=== PATIENT | female | born 1970 | race American Indian/Alaskan Native ===

== ENCOUNTER 2017-06-16 21:32 | Emergency (ER) | payer SELFPAY ==
[~2017-06-16] VITALS: Ht 149.9 cm; Wt 60.5 kg
[2017-06-16 22:51] LABS: Urine Bacteria FEW /hpf (None Seen); Urine Blood 1+ /uL (Negative); Urine Hyaline Cast FEW /lpf (0 - 2); Urine Specific Gravity 1.014 (1.001-1.035); Urine WBC 15 /hpf (0 - 5)
[2017-06-16 23:40] LABS: Hemoglobin 7.6 g/dL (12.2-16.2); White Blood Cell 17.8 10^3/uL (4.4-10.8)
[2017-06-16 23:42] LABS: Hematocrit 24.3 % (36.0-46.0); Mean Corpuscular Hemoglobin 19.6 pg (28.0-32.0); Mean Corpuscular Hgb Conc. 31.1 g/dL (32.0-36.0); Mean Corpuscular Volume 63.1 fL (80.0-100.0); Platelet Count (auto) 288 10^3/uL (140-450); Red Blood Cells 3.85 10^6/uL (4.0-5.20); Red Cell Distribution Width 18.5 % (11.8-14.3)
[2017-06-16] MEDS ORDERED: MORPHINE SULFATE 4 MG/ML SYR/VIAL IV ONE (23:45)
[2017-06-16] MEDS ORDERED: ONDANSETRON HCL 4 MG/2 ML VIAL IV ONE (23:45)
[2017-06-16 23:51] LABS: Band Neutrophils % (manual) 0; Basophils % (manual) 0 (0.0-2.0); Blast Cells 0; Metamyelocytes % 0; Myelocytes % 0; Promyelocytes % 0; Reactive Lymphocytes 0
[2017-06-16 23:54] LABS: Albumin 2.1 g/dL (3.4-5.0); Potassium 4.8 mmol/L (3.5-5.1)
[2017-06-17] VITALS (8 sets, daily range): BP systolic 119–137; BP diastolic 51–80
[2017-06-17 00:02] LABS: Bilirubin, Total 0.1 mg/dL (0.2-1.0); Total Protein 6.5 g/dL (6.4-8.2)
[2017-06-17 00:33] LABS: INR 0.99 (0.9-1.15); Partial Thromboplastin Time 30.8 sec (22.64-33.71); Prothrombin Time 10.8 sec (9.37-12.3)
[2017-06-17] MEDS ORDERED: LIDOCAINE 2% (LOCAL ANESTH.) PF 5ml SDV ONE (00:37)
[2017-06-17 00:53] LABS: Eosinophils % (manual) 2 (0-7); Lymphocytes % (manual) 19 (10.0-50.0); Monocytes % (manual) 6 (0-12)
[2017-06-17] MEDS ORDERED: cefTRIAXone 1GM/10ml IVPUSH 10 ML IV ONE (02:30)
[2017-06-17] MEDS ORDERED: ONDANSETRON HCL 4 MG/2 ML VIAL IV ONE (03:15)
[2017-06-17] MEDS ORDERED: MORPHINE SULFATE 4 MG/ML SYR/VIAL IV ONE (03:15)
[2017-06-17] MEDS ORDERED: VITAMINS A & D (TOPICAL) OINT 5GM TOP ONE (04:31)
== END 2017-06-17 09:06 | disposition home or self-care (01) ==
LOC: ER 21:32
DX: K70.31 Alcoholic cirrhosis of liver with ascites (principal); K80.20 Calculus of gallbladder without cholecystitis without obstruction; D64.9 Anemia, unspecified; E87.1 Hypo-osmolality and hyponatremia; N39.0 Urinary tract infection, site not specified; D72.829 Elevated white blood cell count, unspecified; N28.9 Disorder of kidney and ureter, unspecified
CPT/HCPCS: 36415; 36430; 49083; 70450; 74176; 80053; 81001; 81025; 85007; 85027; 85610; 85730; 86850; 86900; 86901; 86920; 87205; 89051; 93005; 96374; 96375; 96376; 99285; J2270; J2405; J7030; P9016

== ENCOUNTER 2017-07-01 20:47 | Inpatient (IN) | payer SELFPAY ==
[~2017-07-01] VITALS: Ht 149.9 cm; Wt 57.7 kg
[2017-07-01 22:01] LABS: Monocytes # (auto) 1.4 uL
[2017-07-01 22:02] LABS: Basophils # (auto) 0.2 uL; Basophils % (auto) 1.4 % (0.0-2.0); Eosinophils # (auto) 0.3 uL; Hematocrit 31.3 % (36.0-46.0); Hemoglobin 9.8 g/dL (12.2-16.2); Lymphocytes # (auto) 2.4 uL; Lymphocytes % (auto) 13.8 % (10.0-50.0); Mean Corpuscular Hemoglobin 21.1 pg (28.0-32.0); Mean Corpuscular Hgb Conc. 31.4 g/dL (32.0-36.0); Monocytes % (auto) 7.9 % (0.0-12.0); Neutrophils % (auto) 74.9 % (37.0-80.0); Platelet Count (auto) 327 10^3/uL (140-450); Red Blood Cells 4.67 10^6/uL (4.0-5.20); White Blood Cell 17.3 10^3/uL (4.4-10.8)
[2017-07-01 22:06] LABS: Red Cell Distribution Width 24.2 % (11.8-14.3)
[2017-07-01 22:15] LABS: Partial Thromboplastin Time 31.7 sec (22.64-33.71); Prothrombin Time 10.9 sec (9.37-12.3)
[2017-07-01 22:17] LABS: Albumin 1.7 g/dL (3.4-5.0); BUN/Creatinine Ratio 24.6; Calcium 8.4 mg/dL (8.5-10.1); Magnesium 2.9 mg/dL (1.6-2.6)
[2017-07-01 22:20] LABS: Bilirubin, Total 0.2 mg/dL (0.2-1.0); Total Protein 6.9 g/dL (6.4-8.2)
[2017-07-02] MEDS ORDERED: DEXTROSE (50%) 50ML SYRG IV ONE (01:30)
[2017-07-02] MEDS ORDERED: SODIUM POLYSTYRENE SULF 15GM/60ML SUSP PO ONE (01:30)
[2017-07-02] MEDS ORDERED: InsuLIN REG 1unit/0.01ml Soln (100units/ml) IV ONE (01:30)
[2017-07-02] MEDS ORDERED: CALCIUM GLUC 4.65meq/50ml D5AE 50 ML IV ONE (01:30)
[2017-07-02] MEDS ORDERED: SODIUM BICARBONATE 8.4 % INJ 50ML VIAL IV ONE (01:30)
[2017-07-02] MEDS ORDERED: HYDROcodone-ACET 5/325MG TAB PO ONE (05:15)
[2017-07-02] MEDS ORDERED: NITROGLYCERIN 0.4 MG SL TAB SL PRN (09:45)
[2017-07-02] MEDS ORDERED: MORPHINE SULFATE 8mg/ml INJ SDV IV PRN (09:45)
[2017-07-02] MEDS ORDERED: TEMAZEPAM 15 MG CAP PO PRN (09:45)
[2017-07-02] MEDS ORDERED: cefTRIAXone 1GM/10ml IVPUSH 10 ML IV ONE (09:45)
[2017-07-02] MEDS: MORPHINE SULFATE 8mg/ml INJ SDV IV PRN ×4 (09:54→23:55)
[2017-07-02] MEDS: PANTOPRAZOLE 40 MG TAB PO SCH (10:15)
[2017-07-02 10:51] LABS: Calcium 8.4 mg/dL (8.5-10.1); Potassium 4.7 mmol/L (3.5-5.1)
[2017-07-02 10:58] LABS: Amylase 35 U/L (25-115); Lipase 150 U/L (73-393)
[2017-07-02 13:00] VITALS: BP 125/62
[2017-07-02] MEDS: metroNIDAZOLE 500MG/100ML 100 ML IV SCH ×2 (13:25→17:20)
[2017-07-02] MEDS ORDERED: DOCU100T15 PO (14:10)
[2017-07-02] MEDS ORDERED: FURO40TA PO (14:10)
[2017-07-02] MEDS ORDERED: FOLI1TAB6 PO (14:10)
[2017-07-02] MEDS ORDERED: MULTTAB99 GT (14:10)
[2017-07-02] MEDS ORDERED: HYDR200T PO (14:10)
[2017-07-02] MEDS ORDERED: SODIUM CHLORIDE 0.9% 1,000 ML IV ONE (14:30)
[2017-07-02 15:00] LABS: Urine Bacteria NONE SEEN /hpf (None Seen); Urine Blood 2+ /uL (Negative); Urine Hyaline Cast MOD /lpf (0 - 2); Urine Mucus FEW (None Seen); Urine Specific Gravity 1.022 (1.001-1.035); Urine WBC 7 /hpf (0 - 5)
[2017-07-02 15:28] LABS: Protein, Urine 139.9 mg/dL (0.0-11.9)
[2017-07-02 17:00] VITALS: BP 111/57
[2017-07-02 20:00] VITALS: BP 128/68
[2017-07-02 21:30] VITALS: BP 118/72
[2017-07-02] MEDS: NYSTATIN (MOUTH-THROAT) 500,000 UNITS/5 ML SUSP MT SCH (21:56)
[2017-07-02] MEDS: PROMETHAZINE HCL 25 MG/ML 1ML IV PRN (23:55)
[2017-07-03] MEDS: metroNIDAZOLE 500MG/100ML 100 ML IV SCH ×4 (00:45→17:32)
[2017-07-03] MEDS: MORPHINE SULFATE 8mg/ml INJ SDV IV PRN ×3 (04:32→22:32)
[2017-07-03] MEDS: PROMETHAZINE HCL 25 MG/ML 1ML IV PRN ×3 (04:32→22:32)
[2017-07-03 04:33] VITALS: BP 127/71
[2017-07-03] MEDS: NYSTATIN (MOUTH-THROAT) 500,000 UNITS/5 ML SUSP MT SCH ×4 (05:50→22:33)
[2017-07-03 06:50] LABS: Basophils # (auto) 0.2 uL; Eosinophils # (auto) 0.5 uL; Hemoglobin 8.4 g/dL (12.2-16.2)
[2017-07-03 06:53] LABS: Basophils % (auto) 1.1 % (0.0-2.0); Eosinophils % (auto) 2.8 % (0.0-7.0); Hematocrit 26.9 % (36.0-46.0); Lymphocytes # (auto) 2.6 uL; Lymphocytes % (auto) 15.5 % (10.0-50.0); Mean Corpuscular Hemoglobin 20.9 pg (28.0-32.0); Mean Corpuscular Hgb Conc. 31.2 g/dL (32.0-36.0); Monocytes # (auto) 1.5 uL; Monocytes % (auto) 9.3 % (0.0-12.0); Neutrophils # (auto) 11.8 uL; Neutrophils % (auto) 71.3 % (37.0-80.0); Platelet Count (auto) 301 10^3/uL (140-450); Red Blood Cells 4.02 10^6/uL (4.0-5.20); White Blood Cell 16.5 10^3/uL (4.4-10.8)
[2017-07-03 07:00] LABS: Albumin 1.5 g/dL (3.4-5.0); BUN/Creatinine Ratio 18.9; Calcium 8.3 mg/dL (8.5-10.1); Potassium 5.1 mmol/L (3.5-5.1)
[2017-07-03 07:01] LABS: Red Cell Distribution Width 23.6 % (11.8-14.3)
[2017-07-03 07:04] LABS: Bilirubin, Total 0.2 mg/dL (0.2-1.0); Total Protein 6.1 g/dL (6.4-8.2)
[2017-07-03 07:41] LABS: Phosphorus 7.2 mg/dL (2.5-4.90); Uric Acid 15.1 mg/dL (2.6-6.0)
[2017-07-03 08:44] VITALS: BP 122/66
[2017-07-03] MEDS ORDERED: LIDOCAINE 2% (LOCAL ANESTH.) PF 5ml SDV ONE (09:01)
[2017-07-03] MEDS: LORazepam 0.5 MG TAB PO PRN (09:03)
[2017-07-03 10:08] LABS: Hepatitis B Surface Antibody Positive
[2017-07-03] MEDS: PANTOPRAZOLE 40 MG TAB PO SCH (10:20)
[2017-07-03] MEDS: cefTRIAXone 1GM/10ml IVPUSH 10 ML IV SCH (10:20)
[2017-07-03 10:41] LABS: Hepatitis A Total Antibody Positive
[2017-07-03 11:03] LABS: Hepatitis B Core Total AB Negative; Hepatitis C Antibody Negative (Negative)
[2017-07-03] MEDS: ALBUMIN 25% 100 ML IV SCH ×2 (14:09→15:30)
[2017-07-03 14:32] LABS: Hepatitis B Surface Antigen Negative (Negative)
[2017-07-03 16:48] VITALS: BP 110/63
[2017-07-03 22:00] VITALS: BP 118/66
[2017-07-03 23:17] LABS: Alcohol, Urine < 3.0 mg/dL (0-5); Amphetamine Screen, Urine NEGATIVE (NEGATIVE); Barbiturate Scree,Urine NEGATIVE (NEGATIVE); Benzodiazephine Screen, Urine NEGATIVE (NEGATIVE); Cannabinoid Screen, Urine NEGATIVE (NEGATIVE); Cocaine Screen, Urine NEGATIVE (NEGATIVE); Creatinine, Urine 82 mg/dL (30.0-125.0); Opiate Scree,Urine POSITIVE (NEGATIVE); Phencyclidine Screen, Urine NEGATIVE (NEGATIVE); Sodium Urine 18 mmol/L (40-220)
[2017-07-04] MEDS: metroNIDAZOLE 500MG/100ML 100 ML IV SCH ×2 (00:21→05:41)
[2017-07-04] MEDS: MORPHINE SULFATE 8mg/ml INJ SDV IV PRN ×4 (02:57→23:04)
[2017-07-04 04:43] VITALS: BP 123/62
[2017-07-04] MEDS: NYSTATIN (MOUTH-THROAT) 500,000 UNITS/5 ML SUSP MT SCH ×3 (05:42→21:37)
[2017-07-04 06:51] LABS: Basophils # (auto) 0.2 uL; Hematocrit 25.8 % (36.0-46.0); Lymphocytes # (auto) 1.8 uL; Neutrophils # (auto) 10.2 uL; Neutrophils % (auto) 72.3 % (37.0-80.0); White Blood Cell 14.1 10^3/uL (4.4-10.8)
[2017-07-04 06:57] LABS: Basophils % (auto) 1.3 % (0.0-2.0); Eosinophils # (auto) 0.6 uL; Eosinophils % (auto) 4.3 % (0.0-7.0); Hemoglobin 8.2 g/dL (12.2-16.2); Lymphocytes % (auto) 12.9 % (10.0-50.0); Mean Corpuscular Hemoglobin 21.6 pg (28.0-32.0); Mean Corpuscular Hgb Conc. 31.9 g/dL (32.0-36.0); Mean Corpuscular Volume 67.6 fL (80.0-100.0); Monocytes # (auto) 1.3 uL; Monocytes % (auto) 9.2 % (0.0-12.0); Platelet Count (auto) 252 10^3/uL (140-450); Red Blood Cells 3.82 10^6/uL (4.0-5.20)
[2017-07-04 07:04] LABS: Red Cell Distribution Width 23.3 % (11.8-14.3)
[2017-07-04 07:46] LABS: Albumin 2.1 g/dL (3.4-5.0); BUN/Creatinine Ratio 17.8; Bilirubin, Total 0.3 mg/dL (0.2-1.0); Calcium 7.5 mg/dL (8.5-10.1); Potassium 4.8 mmol/L (3.5-5.1); Total Protein 5.7 g/dL (6.4-8.2)
[2017-07-04 08:49] VITALS: BP 113/54
[2017-07-04] MEDS: cefTRIAXone 1GM/10ml IVPUSH 10 ML IV SCH (09:22)
[2017-07-04] MEDS: PANTOPRAZOLE 40 MG TAB PO SCH (09:22)
[2017-07-04 12:56] VITALS: BP 124/64
[2017-07-04 17:00] VITALS: BP 122/62
[2017-07-04 22:20] VITALS: BP 122/64
[2017-07-05] MEDS: MORPHINE SULFATE 8mg/ml INJ SDV IV PRN ×5 (03:16→22:14)
[2017-07-05 05:41] VITALS: BP 117/77
[2017-07-05 06:33] LABS: Basophils # (auto) 0.2 uL; Eosinophils # (auto) 0.6 uL; Hemoglobin 8.3 g/dL (12.2-16.2); Red Blood Cells 3.93 10^6/uL (4.0-5.20)
[2017-07-05 06:35] LABS: Basophils % (auto) 1.4 % (0.0-2.0); Eosinophils % (auto) 4.6 % (0.0-7.0); Hematocrit 26.7 % (36.0-46.0); Lymphocytes # (auto) 1.7 uL; Lymphocytes % (auto) 12.2 % (10.0-50.0); Mean Corpuscular Hgb Conc. 30.9 g/dL (32.0-36.0); Monocytes # (auto) 1.4 uL; Monocytes % (auto) 10.1 % (0.0-12.0); Neutrophils # (auto) 10.1 uL; Neutrophils % (auto) 71.7 % (37.0-80.0); Platelet Count (auto) 242 10^3/uL (140-450)
[2017-07-05 06:36] LABS: Red Cell Distribution Width 23.2 % (11.8-14.3)
[2017-07-05] MEDS: NYSTATIN (MOUTH-THROAT) 500,000 UNITS/5 ML SUSP MT SCH ×3 (06:50→22:14)
[2017-07-05 06:52] LABS: Albumin 1.7 g/dL (3.4-5.0); BUN/Creatinine Ratio 19.9; Calcium 7.4 mg/dL (8.5-10.1); Potassium 4.6 mmol/L (3.5-5.1)
[2017-07-05 06:55] LABS: Bilirubin, Total 0.2 mg/dL (0.2-1.0); Total Protein 5.4 g/dL (6.4-8.2)
[2017-07-05 09:00] VITALS: BP 145/83
[2017-07-05] MEDS: PANTOPRAZOLE 40 MG TAB PO SCH (09:43)
[2017-07-05] MEDS ORDERED: MORPHINE SULFATE 8mg/ml INJ SDV IV ONE (10:15)
[2017-07-05 12:38] VITALS: BP 126/76
[2017-07-05 16:47] VITALS: BP 140/68
[2017-07-05] MEDS: PROMETHAZINE HCL 25 MG/ML 1ML IV PRN (18:54)
[2017-07-05 22:00] VITALS: BP 138/83
[2017-07-06] MEDS: MORPHINE SULFATE 8mg/ml INJ SDV IV PRN ×4 (02:16→19:50)
[2017-07-06] MEDS: PROMETHAZINE HCL 25 MG/ML 1ML IV PRN ×3 (02:18→21:19)
[2017-07-06 05:00] VITALS: BP 124/71
[2017-07-06 06:48] LABS: BUN/Creatinine Ratio 21.6; Calcium 7.3 mg/dL (8.5-10.1); Potassium 5.4 mmol/L (3.5-5.1)
[2017-07-06] MEDS: NYSTATIN (MOUTH-THROAT) 500,000 UNITS/5 ML SUSP MT SCH ×3 (07:00→19:50)
[2017-07-06] MEDS: PANTOPRAZOLE 40 MG TAB PO SCH (08:07)
[2017-07-06 09:00] VITALS: BP 114/51
[2017-07-06 13:00] VITALS: BP 116/48
[2017-07-06] MEDS ORDERED: SODIUM POLYSTYRENE SULF 15GM/60ML SUSP PO ONE (15:30)
[2017-07-06 18:09] VITALS: BP 126/66
[2017-07-06 22:00] VITALS: BP 114/62
[2017-07-07] MEDS: MORPHINE SULFATE 8mg/ml INJ SDV IV PRN ×5 (01:16→22:41)
[2017-07-07 05:22] VITALS: BP 111/40
[2017-07-07] MEDS: PROMETHAZINE HCL 25 MG/ML 1ML IV PRN ×4 (05:24→22:41)
[2017-07-07] MEDS: NYSTATIN (MOUTH-THROAT) 500,000 UNITS/5 ML SUSP MT SCH ×3 (06:00→22:40)
[2017-07-07 07:08] LABS: Albumin 1.6 g/dL (3.4-5.0); BUN/Creatinine Ratio 26.1; Basophils # (auto) 0.2 uL; Basophils % (auto) 1.2 % (0.0-2.0); Bilirubin, Total 0.2 mg/dL (0.2-1.0); Calcium 7.5 mg/dL (8.5-10.1); Eosinophils # (auto) 0.5 uL; Eosinophils % (auto) 3.5 % (0.0-7.0); Hematocrit 26.3 % (36.0-46.0); Hemoglobin 8.4 g/dL (12.2-16.2); Lymphocytes # (auto) 2.6 uL; Lymphocytes % (auto) 18.3 % (10.0-50.0); Mean Corpuscular Hemoglobin 21.3 pg (28.0-32.0); Monocytes # (auto) 1.4 uL; Monocytes % (auto) 10.1 % (0.0-12.0); Neutrophils # (auto) 9.6 uL; Neutrophils % (auto) 66.9 % (37.0-80.0); Platelet Count (auto) 259 10^3/uL (140-450); Red Blood Cells 3.95 10^6/uL (4.0-5.20); Red Cell Distribution Width 24.5 % (11.8-14.3); Total Protein 5.6 g/dL (6.4-8.2); White Blood Cell 14.3 10^3/uL (4.4-10.8)
[2017-07-07 07:21] LABS: Mean Corpuscular Volume 66.5 fL (80.0-100.0)
[2017-07-07 08:48] LABS: INR 1.1 (0.9-1.15)
[2017-07-07 09:00] VITALS: BP 126/71
[2017-07-07] MEDS: PANTOPRAZOLE 40 MG TAB PO SCH (09:07)
[2017-07-07] MEDS: LORazepam 0.5 MG TAB PO PRN (09:07)
[2017-07-07] MEDS ORDERED: LIDOCAINE 2% (LOCAL ANESTH.) PF 5ml SDV ONE (09:59)
[2017-07-07] MEDS: ALBUMIN 25% 100 ML IV SCH ×2 (11:47→11:54)
[2017-07-07 13:00] VITALS: BP 112/61
[2017-07-07 17:19] VITALS: BP 116/58
[2017-07-07 22:00] VITALS: BP 142/71
[2017-07-07 23:18] VITALS: BP 142/71
== END 2017-07-07 20:53 | disposition home or self-care (01) | DRG 682 ==
LOC: ER 20:52 → TELE 20:53 → TELE-WESTW 07-02 12:07 → WEST WING 07-05 16:49
PROVIDERS: ADMIT Internal Medicine; ATTEND Internal Medicine
PROC: 0W9G30Z Drainage of Peritoneal Cavity with Drainage Device, Percutaneous Approach (ICD-10-PCS; principal; 2017-07-03)
PROC: 0W9G30Z Drainage of Peritoneal Cavity with Drainage Device, Percutaneous Approach (ICD-10-PCS; 2017-07-07)
DX: N17.0 Acute kidney failure with tubular necrosis (principal); E43 Unspecified severe protein-calorie malnutrition; R18.8 Other ascites; E87.1 Hypo-osmolality and hyponatremia; E87.5 Hyperkalemia; N39.0 Urinary tract infection, site not specified; N04.9 Nephrotic syndrome with unspecified morphologic changes; K74.60 Unspecified cirrhosis of liver; N18.3 Chronic kidney disease, stage 3 (moderate); R59.1 Generalized enlarged lymph nodes; K80.20 Calculus of gallbladder without cholecystitis without obstruction; D50.9 Iron deficiency anemia, unspecified; Z82.49 Family history of ischemic heart disease and other diseases of the circulatory system; Z87.11 Personal history of peptic ulcer disease; Z83.3 Family history of diabetes mellitus
CPT/HCPCS: 10022; 36415; 74181; 76700; 76775; 76942; 80048; 80053; 80061; 80307; 81001; 81025; 82040; 82140; 82150; 82270; 82378; 82550; 82570; 82962; 83520; 83540; 83550; 83605; 83690; 83735; 84100; 84156; 84300; 84550; 85025; 85610; 85730; 86160; 86225; 86235; 86256; 86304; 86703; 86704; 86706; 86708; 86803; 87040; 87081; 87086; 87205; 87340; 89051; 96365; 96375; C1729; J0610; J1815; J2270; J3490; P9047